=== PATIENT | female | born 2000 | race Caucasian/White ===

== ENCOUNTER 2019-09-20 23:57 | Emergency (ER) | payer MEDICAID ==
[~2019-09-20] VITALS: Ht 167.6 cm; Wt 90.9 kg
[2019-09-21 00:08] VITALS: Ht 167.6 cm; Wt 90.9 kg
[2019-09-21] MEDS ORDERED: TORADOL10 MG PO (01:49)
[2019-09-21 02:33] VITALS: BP 112/65
== END 2019-09-21 02:40 | disposition home or self-care (01) ==
LOC: D.ER 23:57
DX: H60.91 Unspecified otitis externa, right ear (principal)